=== PATIENT | female | born 1995 | race Caucasian/White ===

== ENCOUNTER 2018-04-18 16:12 | Emergency (ER) | payer BC ==
--- NOTE | 2018-04-18 18:41 | UC ---
Complaint Female HPI - HPI Summary HPI Summary: C/O possible retained tampon. [place] something in her vagina. Has not been able to find tampon. - History Of Current Complaint Chief Complaint: [facility]CGU Stated Complaint: PERSONAL Time Seen by Provider: 04/18/18 18:25 Hx Last Menstrual Period: 04/15/18 ?: No Onset/Duration: Sudden Onset Timing: Constant Severity Currently: None Pain Intensity: 0 Character: Not Applicable Aggravating Factor(s): Nothing Alleviating Factor(s): Nothing Associated Signs And Symptoms: Positive: Negative, Vaginal Discharge - normal menstruation - Allergies/Home Medications Allergies/Adverse Reactions: Allergies Allergy/AdvReac Type Severity Reaction Status Date / Time No Known Allergies Allergy Verified 04/18/18 16:56 Home Medications: Home Medications Levonorgestrel-Ethin Estradiol [Altavera-28 Tablet] 1 each PO DAILY WITH MEAL [History Confirmed 04/18/18] PMH/Surg Hx/FS Hx/Imm Hx Previously Healthy: Yes - Surgical History Surgical History: None - Family History Known Family History: Negative: Diabetes - Social History Occupation: Student Lives: Dormitory/Roommates Alcohol Use: Weekly Substance Use Type: None Smoking Status (MU): Never Smoked Tobacco Review of Systems Is Patient Immunocompromised?: No All Other Systems Reviewed And Are Negative: Yes Physical Exam Triage Information Reviewed: Yes Appearance: Well-Appearing, No Pain Distress, Well-Nourished Vital Signs: Initial Vital Signs Temp 98.3 F 04/18/18 16:52 Pulse 88 04/18/18 16:52 Resp 20 04/18/18 16:52 BP 118/77 04/18/18 16:52 Pulse Ox 98 04/18/18 16:52 Vital Signs Reviewed: Yes Eyes: Positive: Conjunctiva Clear Neck exam: Normal Respiratory Exam: Normal Cardiovascular Exam: Normal Abdomen Description: Positive: Nontender, No Organomegaly, Soft Pelvic Exam: Positive: External Exam Normal, Speculum Exam Normal, Bimanual Exam Normal - no tampon identified. Cervix is palpable easily Complaint Female Dx - Differential Dx/Diagnosis Differential Diagnosis/HQI/PQRI: Cervicitis, Endometriosis, Retained Foreign Body Provider Diagnoses: Normal menstruation Discharge - Sign-Out/Discharge Documenting (check all that apply): Patient Departure All imaging exams completed and their final reports reviewed: No Studies - Discharge Plan Condition: Stable Disposition: HOME Patient Education Materials: Vaginal Foreign Body (ED) Referrals: No Primary Care Phys,NOPCP [Primary Care Provider] - Additional Instructions: No tampon seen. The thing in the vagina is your cervix which is normal. You should start getting Pap smears at 23 years old - Billing Disposition and Condition Condition: STABLE Disposition: Home
== END 2018-04-18 18:47 | disposition home or self-care (01) ==
LOC: UCCORT 16:12
DX: Z03.89 Encounter for observation for other suspected diseases and conditions ruled out (principal)
CPT/HCPCS: 99202; G0463

== ENCOUNTER 2019-03-25 14:27 | Emergency (ER) | payer BC ==
--- NOTE | 2019-03-25 15:25 | UC ---
Back Pain HPI - HPI Summary HPI Summary: 23 yo female was seated in class two days ago She stretched out her left leg and go the sudden onset of LBP Pain has been constant since them worse with bending/twisting relieved with rest no UTI symptoms pain occas radiates to from back to lower abd no f/c on occasions pain is so severe she breaks out into a sweat - History of Current Complaint Chief Complaint: UCGeneralIllness Stated Complaint: LOW BACK PAIN Time Seen by Provider: 03/25/19 15:07 Hx Obtained From: Patient Hx Last Menstrual Period: 03/13/19 Onset/Duration: Sudden Onset Timing: Constant Severity Initially: Moderate Severity Currently: Mild Pain Intensity: 3 Pain Scale Used: 0-10 Numeric Back Pain: Is Diffuse - lower back Character: Aching, Throbbing, Spasmodic Aggravating Factor(s): Movement, Bending Alleviating Factor(s): Rest, Nothing Associated Signs And Symptoms: Negative: Swelling, Redness, Bruising, Fever, Weakness, Numbness, Tingling, Flank Pain, Bladder Incontinence, Bowel Incontinence, Weight Loss, Pain with Weight Bearing Full Body (No Head): 1 - crampy pain - Allergies/Home Medications Allergies/Adverse Reactions: Allergies Allergy/AdvReac Type Severity Reaction Status Date / Time No Known Allergies Allergy Verified 03/25/19 15:00 PMH/Surg Hx/FS Hx/Imm Hx Previously Healthy: Yes - Surgical History Surgical History: Yes Surgery Procedure, Year, and Place: Ovarian dermoid cyst removed--approx age 15 or 16. - Family History Known Family History: Negative: Cardiac Disease, Hypertension, Diabetes - Social History Alcohol Use: Weekly Substance Use Type: None Smoking Status (MU): Never Smoked Tobacco Review of Systems All Other Systems Reviewed And Are Negative: Yes Constitutional: Positive: Negative Skin: Positive: Negative Eyes: Positive: Negative ENT: Positive: Negative Cardiovascular: Positive: Negative Gastrointestinal: Positive: Negative Genitourinary: Positive: Negative Motor: Positive: Negative Neurovascular: Positive: Negative Musculoskeletal: Positive: Negative, Myalgia Neurological: Positive: Negative Psychological: Positive: Negative Physical Exam Triage Information Reviewed: Yes Appearance: Well-Appearing, No Pain Distress, Well-Nourished Vital Signs: Initial Vital Signs Temp 98.8 F 03/25/19 15:01 Pulse 94 03/25/19 15:01 Resp 18 03/25/19 15:01 BP 117/69 03/25/19 15:01 Pulse Ox 100 03/25/19 15:01 Vital Signs Reviewed: Yes Eyes: Positive: Conjunctiva Clear ENT: Positive: Hearing grossly normal, Uvula midline. Negative: Nasal congestion, Nasal drainage, Trismus, Muffled voice, Hoarse voice Dental Exam: Normal Neck: Positive: Supple, Nontender, No Lymphadenopathy Respiratory: Positive: Lungs clear, Normal breath sounds, No respiratory distress Cardiovascular: Positive: RRR, No Murmur, Pulses Normal Abdomen Description: Positive: Nontender, No Organomegaly, Soft. Negative: CVA Tenderness (R) Bowel Sounds: Positive: Present Musculoskeletal: Positive: ROM Intact, No Edema Neurological: Positive: Alert Psychological Exam: Normal Skin Exam: Normal - Additional Comments Back exam: no CVA tenderness, no midline evert tenderness, pain with flexion and limited flexion, pain with twistins normal gait, DTRs symmetrical Diagnostics - Laboratory Lab Results: UA neg for leuks and RBCs Back Pain Course/Dx - Differential Dx/Diagnosis Provider Diagnosis: Acute lumbar myofascial strain Discharge ED - Sign-Out/Discharge Documenting (check all that apply): Patient Departure All imaging exams completed and their final reports reviewed: No Studies - Discharge Plan Condition: Stable Disposition: HOME Patient Education Materials: Low Back Strain (ED) Referrals: No Primary Care Phys,NOPCP [Primary Care Provider] - Additional Instructions: ibuprofen 200mg 3 pills upto 4x day as needed for pain recheck for new or worsening symptoms recheck in 5-10 days if not better - Billing Disposition and Condition Condition: STABLE Disposition: Home
== END 2019-03-25 15:37 | disposition home or self-care (01) ==
LOC: UCCORT 14:27
DX: S39.012A Strain of muscle, fascia and tendon of lower back, initial encounter (principal); X50.0XXA Overexertion from strenuous movement or load, initial encounter; Y93.89 Activity, other specified; Y92.219 Unspecified school as the place of occurrence of the external cause
CPT/HCPCS: 81003; 99211; G0463